=== PATIENT | male | born 1970 | race Caucasian/White ===

== ENCOUNTER 2018-04-30 10:51 | Emergency (ER) | payer OTHER, SELFPAY ==
[2018-04-30 10:55] VITALS: BP 138/81; PULSE 66; RESP 12; TEMP 35.9; O2SAT 97
--- NOTE | 2018-04-30 11:00 | ED.GENADULT ---
HPI - General Adult General Chief complaint: Dizziness Stated complaint: SEVERE DIZZINESS, NAUSEA, SOB, SWEATING Time Seen by Provider: 04/30/18 10:54 Source: patient Mode of arrival: ambulatory Limitations: no limitations History of Present Illness HPI narrative: Patient is otherwise healthy 47-year-old male here for evaluation of vertigo. Patient states that he has had multiple episodes of vertigo in the past over they were very short-lived. He states that he woke up this morning and noticed a spinning sensation. Does occur when he turns his head to the right. States that he feels much better if he is lying on his left side. Denies chest pain, palpitations, headache, ringing in his ears, vision changes, sinus congestion. He did take some decongestants this morning with only minimal relief. Has vomited 2 times. States that he has been sweating because of how bad he feels when the room was spinning. Related Data Home Medications Medication Instructions Recorded Confirmed fluticasone [Flonase Allergy 2 spray INTRANASAL QDAY #0 09/09/16 04/30/18 Relief] Allergy Drops 1 dose PO DAILY 04/30/18 04/30/18 Previous Rx's Medication Instructions Recorded meclizine 25 mg PO BID-TID PRN #10 tab 04/30/18 Allergies Allergy/AdvReac Type Severity Reaction Status Date / Time No Known Drug Allergies Allergy Verified 04/30/18 11:13 Review of Systems Constitutional Reports chills, Denies fever(s), Denies frequent falls and Denies headache(s) Eyes Denies diplopia, Denies loss of peripheral vision and Denies loss of vision ENT Ears, Nose, Mouth, and Throat: Reports vertigo and Denies headache(s) Cardiovascular Denies chest pain, Denies syncope, Denies palpitations and Denies dyspnea Respiratory Denies cough and Denies dyspnea Gastrointestinal Gastrointestinal: Denies abdominal pain, Denies constipation, Reports nausea and Reports vomiting Genitourinary Denies dysuria Musculoskeletal Denies myalgias, Denies arthralgias, Denies numbness and Denies tingling Integumentary/Breasts Denies rash and Denies sores Neurologic Denies behavioral changes, Denies confusion, Reports vertigo, Denies syncope, Denies frequent falls, Denies headache(s), Denies lack of coordination, Denies loss of vision, Denies numbness, Denies seizure-like activity and Denies tingling Psychiatric Denies behavioral changes and Denies confusion Endocrine Denies palpitations PFSH Family History Mother Age: 78 Dementia Grandmother Alzheimers disease Social History Smoking Status: Never smoker Exam Initial Vital Signs Initial Vital Signs: Vital Signs Temperature 96.6 F L 04/30/18 10:55 Pulse Rate 66 04/30/18 10:55 Respiratory Rate 12 04/30/18 10:55 Blood Pressure 138/81 H 04/30/18 10:55 Pulse Oximetry 97 04/30/18 10:55 Const General: cooperative, healthy appearing, comfortable, well developed, well groomed and No acute distress Orientation: alert, awake and oriented x3 HENMT Head: normal to inspection, normocephalic and atraumatic Ears: TM's normal bilaterally Nose: external nose normal Face and sinus: normal facial exam Mouth: oral mucosae normal Teeth and gingiva: dentition normal Eyes Eyelids: eyelids normal Pupils: PERRL EOM: EOM intact bilaterally Resp Effort & Inspection: normal respiratory effort Auscultation: clear to auscultation bilaterally Cardio Rate: regular rate Rhythm: regular rhythm Pulses: radial pulses present Skin Lesions: no lesions Rashes: no rashes Neuro General: alert, awake and oriented x3 Cranial Nerves: CN's II-XI intact bilaterally Cognition: normal cognition Speech: speech normal Gait: normal gait Motor: muscle tone normal throughout Sensory Exam: no sensory deficits noted Extrem General: normal to inspection and capillary refill normal Psych Appearance: grossly normal and well kempt Course Orders Ordered: ED Orders 04/30/18 11:04 EKG-12 Lead Stat 04/30/18 11:32 CT head/brain wo con Stat Discontinued Medications Diazepam (Valium) 10 mg PO NOW ONE Stop: 04/30/18 11:09 Last Admin: 04/30/18 11:26 Dose: 10 mg Sodium Chloride (Normal Saline 0.9%) 1,000 mls @ 1,000 mls/hr IV BOLUS ONE Stop: 04/30/18 12:07 Last Infusion: 04/30/18 12:14 Dose: 0 mls/hr Admin: 04/30/18 11:26 Dose: 1,000 mls/hr Ondansetron HCl (Zofran) 4 mg IV NOW ONE Stop: 04/30/18 11:09 Last Admin: 04/30/18 11:27 Dose: 4 mg Vital Signs - 8 hr 04/30/18 10:55 04/30/18 11:52 04/30/18 12:49 Temperature 96.6 F L Pulse Rate 66 70 70 Respiratory Rate 12 13 16 Blood Pressure 138/81 H Blood Pressure [Left Arm] 128/76 H 116/73 Pulse Oximetry 97 98 99 Medical Decision Making MDM Narrative Medical decision making narrative: Patient with almost complete resolution of his symptoms after the Valium and fluids here in the ER. Head CT was negative. This was done because the patient stated that his brother had a history of a brain tumor that started the sudden onset of vision changes. Patient's EKG was unremarkable. Patient essentially did his own Elías-Hallpike maneuver when he turned his head to the right this reproduces symptoms and when he looks straight ahead a turn his head to the left he had no symptoms. The remainder of his neurologic exam was unremarkable. He had no neck pain. Will hold on further workup for now. Patient was given instructions on the Pedro maneuver will send home with a prescription for Valium. I did discuss the case with his ENT doctor who is Dr. German who states that the patient can call his office for follow-up next week. Patient was given return precautions. He was instructed that he should not fly until he was cleared by his flight surgeon. He and his both expressed understanding and agreement with plan Imaging Data CT scan - head: Radiologist's impression: PROCEDURE: CT HEAD/BRAIN WO CON INDICATIONS: Vertigo TECHNIQUE: Noncontrast 4.5 mm thick angled axial sections acquired from the foramen magnum to the vertex, with coronal and sagittal reformats. For radiation dose reduction, the following was used: automated exposure control, adjustment of mA and/or kV according to patient size. COMPARISON: None. FINDINGS: Image quality: Excellent. CSF spaces: Basal cisterns are patent. No extra-axial fluid collections. Ventricles are normal in size and shape. Brain: No midline shift. No intracranial masses or hemorrhage. Boucher-white matter interface is normal. Skull and face: Calvarium and visualized facial bones are intact, without suspicious lesions. Sinuses: Visualized sinuses and mastoids are clear. IMPRESSION: A source of vertigo is not seen. Dictated by: Tre Daly M.D. on 04/30/2018 at 11:44 Approved by: Tre Daly M.D. on 04/30/2018 at 11:44 ECG Data Attestation: I personally reviewed and interpreted this ECG as follows: Prior ECG tracings: not available for review Interpretation: Sinus rhythm Ventricular rate is 63 Normal axis Normal intervals Normal QRS Normal QTC No ST T wave changes Discharge Plan Departure Patient Disposition: Home, Self-Care Clinical Impression: Vertigo Instructions: Vertigo (Alternative Therapy), DI for Vertigo Activity Restrictions/Additional Instructions: Take medications as instructed. You are not a fly into your cleared by your flight surgeon. You can contact Dr. German office for follow-up next week. Return to the emergency department for any new or worsening symptoms Prescriptions: New meclizine 25 mg tablet 25 mg PO BID-TID PRN (Reason: motion sickness) Qty: 10 RF: 0 No Action fluticasone [Flonase Allergy Relief] 9.9 ML spray,suspension 2 spray Intranasal QDAY Qty: 0 RF: 0 Allergy Drops 1 dose PO DAILY RF: 0
[2018-04-30] MEDS: diazePAM 5 MG TABLET 10 MG PO (11:26)
[2018-04-30] MEDS: SODIUM CHLORIDE 0.9% 1,000 ML 1000 ML IV (11:26)
[2018-04-30] MEDS: ONDANSETRON 4 MG/2 ML INJ IV (11:27)
--- NOTE | 2018-04-30 11:32 | DI.CT.S_ITS ---
PROCEDURE: CT HEAD/BRAIN WO CON INDICATIONS: Vertigo TECHNIQUE: Noncontrast 4.5 mm thick angled axial sections acquired from the foramen magnum to the vertex, with coronal and sagittal reformats. For radiation dose reduction, the following was used: automated exposure control, adjustment of mA and/or kV according to patient size. COMPARISON: None. FINDINGS: Image quality: Excellent. CSF spaces: Basal cisterns are patent. No extra-axial fluid collections. Ventricles are normal in size and shape. Brain: No midline shift. No intracranial masses or hemorrhage. Boucher-white matter interface is normal. Skull and face: Calvarium and visualized facial bones are intact, without suspicious lesions. Sinuses: Visualized sinuses and mastoids are clear. IMPRESSION: A source of vertigo is not seen. Dictated by: Tre Daly M.D. on 04/30/2018 at 11:44 Approved by: Tre Daly M.D. on 04/30/2018 at 11:44
[2018-04-30 11:52] VITALS: BP 128/76; PULSE 70; RESP 13; O2SAT 98
[2018-04-30 12:49] VITALS: BP 116/73; PULSE 70; RESP 16; O2SAT 99
[2018-04-30 13:25] VITALS: BP 111/72; PULSE 72; RESP 18; O2SAT 99
== END 2018-04-30 13:27 | disposition home or self-care (01) ==
PROVIDERS: Emergency Provider Emergency Medicine; PCP Internal Medicine
DX: R42 Dizziness and giddiness (principal)
CPT/HCPCS: 36591; 70450; 93005; 93041; 96361; 96374; 99283; 99284; J2405

== ENCOUNTER → 2018-08-23 08:32 | Outpatient (CLI) | payer OTHER, SELFPAY ==
[2018-08-23 09:52] LABS: Hematocrit 50.9 % (41-53); Hemoglobin 17.6 g/dL (13.5-17.5); Mean Corpuscular HGB Conc 34.5 % (30-36); Mean Corpuscular Hemoglobin 31.1 PG (26-34); Mean Corpuscular Volume 90.1 fL (80-100); Platelet Count 343 X10^3/uL (150-400); Red Blood Cell Count 5.65 X10^6/uL (4.5-5.9); Red Cell Distribution Width 12.7 % (11.6-14.8); White Blood Cell Count 10.2 X10^3/uL (4.5-11.0)
[2018-08-23 09:54] LABS: Add Manual Diff / Slide Review YES
[2018-08-23 10:26] LABS: Neutrophils Absolute Manual 5610 /uL (3000-5900); Total Cells Counted 100
[2018-08-23 10:30] LABS: Alanine Aminotransferase 33 IU/L (21-72); Albumin 5.1 g/dL (3.5-5.0); Albumin Globulin Ratio 1.6 (1.0-2.8); Alkaline Phosphatase 72 U/L (38-126); Aspartate Aminotransferase 27 IU/L (17-59); BUN Creatinine Ratio 10.9 (6-22); Bilirubin Total 1.6 mg/dL (0.2-1.3); Blood Urea Nitrogen 12 mg/dL (9-20); Calcium 9.9 mg/dL (8.4-10.2); Carbon Dioxide 18 mmol/L (22-32); Chloride 102 mmol/L (98-107); Cholesterol 216 mg/dL (140-199); Estimated Glomerular Filt Rate > 60.0 mL/min (>60); Globulin 3.1 g/dL (1.7-4.1); Glucose 89 mg/dL (70-100); HDL Cholesterol 47 mg/dL (40-60); HEMOLYSIS < 15 (0-50); LDL Cholesterol Calculated 140 mg/dL (<100); Potassium 4.7 mmol/L (3.4-5.1); Sodium 144 mmol/L (137-145); Total Protein 8.2 g/dL (6.3-8.2); Triglycerides 143 mg/dL (35-150)
[2018-08-23 10:45] LABS: Prostate Specific Antigen Scrn 9.24 ng/mL (0.1-4.0)
== END ==
PROVIDERS: PCP Internal Medicine; Visit Provider Internal Medicine
DX: Z00.00 Encounter for general adult medical examination without abnormal findings (principal); Z12.5 Encounter for screening for malignant neoplasm of prostate
CPT/HCPCS: 36415; 80053; 80061; 85025; G0103

== ENCOUNTER → 2018-08-31 11:38 | Outpatient (CLI) | payer OTHER, SELFPAY ==
[2018-09-02 15:26] LABS: PSA Free % 10 % (calc) (> 25); PSA, Total 11.7 ng/mL (< 4.1)
== END ==
PROVIDERS: PCP Internal Medicine; Visit Provider Internal Medicine
DX: R97.20 Elevated prostate specific antigen [PSA] (principal)
CPT/HCPCS: 36415; 84153; 84154

== ENCOUNTER → 2018-09-25 08:22 | Outpatient (CLI) | payer OTHER, SELFPAY | PROVIDERS: PCP Internal Medicine; Visit Provider Internal Medicine | DX: R97.20 Elevated prostate specific antigen [PSA] (principal) | CPT/HCPCS: 36415; 84153 ==

== ENCOUNTER 2019-01-11 10:43 | Day surgery (SDC) | payer OTHER, SELFPAY ==
[2019-01-11] MEDS: SODIUM CHLORIDE 0.9% 1,000 ML 200 ML IV (10:55)
[2019-01-11 10:56] VITALS: BP 138/81; PULSE 79; RESP 20; TEMP 36.2; O2SAT 95; BMI 31.5
--- NOTE | 2019-01-11 12:17 | PM.HP.1 ---
History of Present Illness Date Patient Seen: 01/11/19 Time Patient Seen: 11:29 Chief complaint: [id number] SCREENING COLONOSCOPY Narrative: The patient is a gentleman who had a colonoscopy 5 years ago. His father had colon cancer diagnosed in these his 60s. He is now from it. Patient gets a colonoscopy every 5 years. No rectal bleeding. Patient History Medical History Gilbert syndrome (Chronic) Elevated PSA (Chronic ~2017) Benign prostatic hyperplasia (Chronic 2012) Diverticulosis of intestine (Chronic 2003) Rosacea (Chronic 05/10/15) Benign paroxysmal vertigo (Chronic 04/30/18) Hayfever (Chronic 1973) Chicken pox (Resolved) Surgical History History of colonoscopy (Resolved 06/18/12) Family History Mother Age: 79 Dementia Grandmother Alzheimer's disease Brother No problems noted. Brother No problems noted. Father Colon cancer Sister No problems noted. Sister No problems noted. Social History marital status: number of children: 2 household members: spouse lives independently: Yes caregiver/support person: No housing: house pets and animals: Yes education level: college (Bachelors Degree) occupational status: employed current occupational exposures/hazards: Yes owen/pentecostal: [employer] travel history: recent ([place], [place], [place], [place], [place]) leisure activities: sports (Golfing.) and exercise (Hiking) Smoking Status: Never smoker Tobacco: How many years used: 0 quit status: quit date established (Never Started) second hand exposure: Yes (Childhood) alcohol intake: current (~3 beers a week.) substance use type: does not use Family & Social History Family History Mother Age: 79 Dementia Grandmother Alzheimer's disease Brother No problems noted. Brother No problems noted. Father Colon cancer Sister No problems noted. Sister No problems noted. Social History: household members spouse lives independently Yes caregiver/support person No Tobacco & Substance use: Smoking Status Never smoker alcohol intake current alcohol intake frequency 0-2 drinks per day Substance Use Type does not use Meds Home Medications Medication Instructions Recorded Confirmed Type fluticasone propionate [Flonase 2 spray INTRANASAL QDAY #0 09/09/16 01/11/19 History Allergy Relief] Allergy Drops 1 dose PO DAILY 04/30/18 11/01/18 History Allergies Allergy/AdvReac Type Severity Reaction Status Date / Time No Known Drug Allergies Allergy Verified 01/11/19 11:12 Review of Systems Review of Systems All systems reviewed & are unremarkable except as noted in HPI and below Eyes Comments: Wears glasses Exam Vital Signs (past 8 hours): - 01/11/19 10:56 Temperature 97.1 F L Pulse Rate 79 Respiratory Rate 20 Blood Pressure 138/81 Pulse Oximetry 95 Oxygen Delivery Method Room Air Narrative Exam Narrative: Operative no apparent distress. Lungs are clear to auscultation. Heart regular rate and rhythm without murmur gallop. Abdomen is mildly protuberant soft nontender without mass. Patient is alert and oriented x3. Assessment & Plan Assessment & Plan narrative: Patient for screening colonoscopy due to family history. I have discussed the procedure and the rationale with the patient including risks of bleeding, perforation which would necessitate a major operation, failure to find remove all lesions and the potential to tattoo. They appeared to understand and wished to proceed.
--- NOTE | 2019-01-11 12:20 | P.HP_ITS ---
History of Present Illness Date Patient Seen: 01/11/19 Time Patient Seen: 11:29 Chief complaint: [id number] SCREENING COLONOSCOPY Narrative: The patient is a gentleman who had a colonoscopy 5 years ago. His father had colon cancer diagnosed in these his 60s. He is now from it. Patient gets a colonoscopy every 5 years. No rectal bleeding. Patient History Medical History Gilbert syndrome (Chronic) Elevated PSA (Chronic ~2017) Benign prostatic hyperplasia (Chronic 2012) Diverticulosis of intestine (Chronic 2003) Rosacea (Chronic 05/10/15) Benign paroxysmal vertigo (Chronic 04/30/18) Hayfever (Chronic 1973) Chicken pox (Resolved) Surgical History History of colonoscopy (Resolved 06/18/12) Family History Mother Age: 79 Dementia Grandmother Alzheimer's disease Brother No problems noted. Brother No problems noted. Father Colon cancer Sister No problems noted. Sister No problems noted. Social History marital status: number of children: 2 household members: spouse lives independently: Yes caregiver/support person: No housing: house pets and animals: Yes education level: college (Bachelors Degree) occupational status: employed current occupational exposures/hazards: Yes owen/buddhist: Scientologist travel history: recent ([place], [place], [place], [place], [place]) leisure activities: sports (Golfing.) and exercise (Hiking) Smoking Status: Never smoker Tobacco: How many years used: 0 quit status: quit date established (Never Started) second hand exposure: Yes (Childhood) alcohol intake: current (~3 beers a week.) substance use type: does not use Family & Social History Family History Mother Age: 79 Dementia Grandmother Alzheimer's disease Brother No problems noted. Brother No problems noted. Father Colon cancer Sister No problems noted. Sister No problems noted. Social History: household members spouse lives independently Yes caregiver/support person No Tobacco & Substance use: Smoking Status Never smoker alcohol intake current alcohol intake frequency 0-2 drinks per day Substance Use Type does not use Meds Home Medications Medication Instructions Recorded Confirmed Type fluticasone propionate [Flonase 2 spray INTRANASAL QDAY #0 09/09/16 01/11/19 History Allergy Relief] Allergy Drops 1 dose PO DAILY 04/30/18 11/01/18 History Allergies Allergy/AdvReac Type Severity Reaction Status Date / Time No Known Drug Allergies Allergy Verified 01/11/19 11:12 Review of Systems Review of Systems All systems reviewed & are unremarkable except as noted in HPI and below Eyes Comments: Wears glasses Exam Vital Signs (past 8 hours): - 01/11/19 10:56 Temperature 97.1 F L Pulse Rate 79 Respiratory Rate 20 Blood Pressure 138/81 Pulse Oximetry 95 Oxygen Delivery Method Room Air Narrative Exam Narrative: Operative no apparent distress. Lungs are clear to auscultation. Heart regular rate and rhythm without murmur gallop. Abdomen is mildly protuberant soft nontender without mass. Patient is alert and oriented x3. Assessment & Plan Assessment & Plan narrative: Patient for screening colonoscopy due to family history. I have discussed the procedure and the rationale with the patient including risks of bleeding, perforation which would necessitate a major operation, failure to find remove all lesions and the potential to tattoo. They appeared to understand and wished to proceed.
--- NOTE | 2019-01-11 12:20 | PM.PREOP ---
Pre-operative Note Interval Note History & Physical reviewed/Exam performed by Physician: Yes Changes to H&P: No ASA Class (for procedural sedation): I
[2019-01-11] MEDS: MIDAZOLAM 5 MG/5 ML VIAL IV (12:25)
[2019-01-11] MEDS: fentaNYL 250 MCG/5 ML INJ IV (12:26)
--- NOTE | 2019-01-11 12:40 | PM.OP.ENDO ---
Operative Date/Time/Diagnoses Date of procedure: 01/11/19 Time of procedure: 12:40 Pre-op diagnosis: Screening examination. Last exam 5 years ago. Patient has a father who had colon cancer in his 60s. Post-op diagnosis: same (Diverticulosis of the sigmoid colon) Procedure & Clinicians Study performed: Colonoscopy Same procedure as scheduled: Yes Indications: Screening Surgeon: Ángel Jiménez Procedure Notes SCOAP/Timeout: Performed Procedure in detail: The patient was placed in the left lateral decubitus position and underwent IV sedation directed by the surgeon consisting of fentanyl and Versed. Digital exam was remarkable for an enlarged firm prostate.(patient had biopsies performed about a month ago which were negative for cancer per his history). The scope was inserted and advanced through the rectum into the sigmoid, descending, transverse, and ascending colon. The patient was noted to have sigmoid diverticulosis. No other lesions were seen on the way in.. The cecum was reached identified by the ileocecal valve and the appendiceal opening. The scope was gradually brought out. No Polyps were found. The scope ultimately was retroflexed in the rectum. The appearance was[normal]. The scope was removed and the patient tolerated the procedure well. The prep was very good. Scope withdrawal time: 7 min Sedation minutes: 19 Findings: diverticulosis (Sigmoid colon) Specimen(s): none sent Complications: none Recommendations: Colonscopy in 5 years (Due to family history) Follow up: as needed Disposition: PACU
[2019-01-11 12:43] VITALS: BP 121/75; PULSE 77; RESP 8; O2SAT 94
[2019-01-11 12:51] VITALS: BP 142/80; PULSE 92; RESP 16; TEMP 36.4; O2SAT 96
--- NOTE | 2019-01-11 12:52 | SUR.PHASEI ---
Pt arrived from endo awake, abd soft. Denied pain.
== END 2019-01-11 13:06 | disposition home or self-care (01) ==
PROVIDERS: PCP Internal Medicine; Visit Provider Specialist
PROC: 0DJD8ZZ Inspection of Lower Intestinal Tract, Via Natural or Artificial Opening Endoscopic (ICD-10-PCS; CPT 45378; principal; 2019-01-11 11:45)
DX: Z12.11 Encounter for screening for malignant neoplasm of colon (principal); K57.30 Diverticulosis of large intestine without perforation or abscess without bleeding; Z80.0 Family history of malignant neoplasm of digestive organs; E80.4 Gilbert syndrome; R97.20 Elevated prostate specific antigen [PSA]; N40.0 Benign prostatic hyperplasia without lower urinary tract symptoms
CPT/HCPCS: 45378; 99152; J2250; J3010

== ENCOUNTER → 2019-08-24 11:15 | Outpatient (CLI) | payer OTHER, SELFPAY ==
[2019-08-24 12:53] LABS: Alanine Aminotransferase 43 IU/L (<50); Albumin 4.7 g/dL (3.5-5.0); Albumin Globulin Ratio 1.8 (1.0-2.8); Alkaline Phosphatase 68 U/L (38-126); Aspartate Aminotransferase 36 IU/L (17-59); Bilirubin Total 1.7 mg/dL (0.2-1.3); Blood Urea Nitrogen 14 mg/dL (9-20); Calcium 9.7 mg/dL (8.4-10.2); Carbon Dioxide 27 mmol/L (22-32); Chloride 102 mmol/L (98-107); Cholesterol 207 mg/dL (140-199); Estimated Glomerular Filt Rate > 60.0 mL/min (>60); Globulin 2.6 g/dL (1.7-4.1); Glucose 83 mg/dL (70-100); HDL Cholesterol 41 mg/dL (40-60); HEMOLYSIS < 15 (0-50); LDL Cholesterol Calculated 146 mg/dL (<100); Potassium 4.5 mmol/L (3.4-5.1); Sodium 139 mmol/L (137-145); Total Protein 7.3 g/dL (6.3-8.2); Triglycerides 100 mg/dL (35-150)
[2019-08-24 13:22] LABS: Prostate Specific Antigen 9.21 ng/mL (0.10-4.00)
== END ==
PROVIDERS: PCP Internal Medicine; Visit Provider Internal Medicine
DX: Z13.1 Encounter for screening for diabetes mellitus (principal); Z13.6 Encounter for screening for cardiovascular disorders; N40.0 Benign prostatic hyperplasia without lower urinary tract symptoms; R97.20 Elevated prostate specific antigen [PSA]
CPT/HCPCS: 36415; 80053; 80061; 84153

== ENCOUNTER 2019-10-10 18:01 | Emergency (ER) | payer OTHER, SELFPAY ==
[2019-10-10 18:07] VITALS: BP 127/79; PULSE 73; RESP 16; TEMP 36.3; O2SAT 100; BMI 30.1
--- NOTE | 2019-10-10 18:44 | ED.GIBLEED ---
HPI - GI Bleed General Chief complaint: GI Bleed Stated complaint: blood in bowel movements/no pain Time Seen by Provider: 10/10/19 18:23 Source: patient Mode of arrival: Ambulatory History of Present Illness HPI Narrative: Patient is otherwise healthy 49-year-old male here for evaluation of bright red blood per rectum. States that over the past day or so he has had bright red blood on the paper when he wiped after having a bowel movement. He states that he has not been having particularly hard bowel movements. They're not painful. Does not describe any blood on the stool or in the water. Did have a father with a history of colon cancer who at the age of 69 after being diagnosed at the age of 65. Patient states that he had a colonoscopy within the past 12 months which he states showed diverticulosis however no polyps. He denies any abdominal pain. No urinary symptoms. Related Data Home Medications Medication Instructions Recorded Confirmed fluticasone propionate [Flonase 2 spray INTRANASAL QDAY #0 09/09/16 09/01/19 Allergy Relief] Allergy Drops 1 dose PO DAILY 04/30/18 09/01/19 Allergies Allergy/AdvReac Type Severity Reaction Status Date / Time No Known Drug Allergies Allergy Verified 09/01/19 09:13 Review of Systems Constitutional Constitutional: Denies fever(s) Cardiovascular Cardiovascular: Denies chest pain and Denies dyspnea Respiratory Respiratory: Denies dyspnea Gastrointestinal Gastrointestinal: Denies abdominal pain, Denies change in stool character, Denies nausea and Denies vomiting Comments: Bright red blood per rectum Genitourinary Genitourinary: Denies dysuria Musculoskeletal Musculoskeletal: Denies myalgias and Denies arthralgias Integumentary/Breasts Skin/Breast: Denies lesions and Denies rash Neurologic Neurologic: Denies behavioral changes Psychiatric Psychiatric: Denies behavioral changes Hematologic/Lymphatic Hematologic/Lymphatic: Denies easy bleeding and Denies easy bruising Patient History Medical History Benign paroxysmal vertigo (Chronic 04/30/18) Benign prostatic hyperplasia (Chronic 2012) Diverticulosis of intestine (Chronic 2003) Elevated PSA (Chronic ~2018) Gilbert syndrome (Chronic) Hayfever (Chronic 1973) Rosacea (Chronic 05/10/15) Surgical History History of colonoscopy (Resolved 06/18/12) Family History Mother Age: 80 Dementia Grandmother Alzheimer's disease Brother No problems noted. Brother No problems noted. Father Colon cancer Sister No problems noted. Sister No problems noted. Social History marital status: number of children: 2 household members: spouse lives independently: Yes caregiver/support person: No housing: house pets and animals: Yes education level: college (Bachelors Degree) occupational status: employed current occupational exposures/hazards: Yes owen/mandaeism: Jewish travel history: recent ([place], [place], [place], [place], [place]) leisure activities: sports (Golfing.) and exercise (Hiking) Smoking Status: Never smoker Tobacco: How many years used: 0 quit status: quit date established (Never Started) second hand exposure: Yes (Childhood) alcohol intake: current (~3 beers a week.) substance use type: does not use Smoking Status: Never smoker alcohol intake frequency: 0-2 drinks per day Substance Use Type: does not use Exam Initial Vital Signs Initial Vital Signs: Vital Signs Temperature 97.3 F L 10/10/19 18:07 Pulse Rate 73 10/10/19 18:07 Respiratory Rate 16 10/10/19 18:07 Blood Pressure 127/79 10/10/19 18:07 Pulse Oximetry 100 10/10/19 18:07 Const General: cooperative, healthy appearing and comfortable HENMT Head: normal to inspection and normocephalic Resp Effort & Inspection: normal respiratory effort Auscultation: clear to auscultation bilaterally Cardio Rate: regular rate Rhythm: regular rhythm GI Inspection: non-distended Palpation: soft and No firm Rectal Exam: visual inspection normal, normal sphincter tone, No fecal impaction, No fissure, heme negative stool, hemorrhoids (Small right-sided internal hemorrhoid), No lesions and No tenderness Skin Lesions: no lesions Rashes: no rashes Neuro General: alert and awake Cognition: normal cognition Speech: speech normal Extrem General: normal to inspection and capillary refill normal Psych Appearance: grossly normal and well kempt Course Vital Signs Vital signs: Vital Signs - 8 hr 10/10/19 18:07 Temperature 97.3 F L Pulse Rate 73 Respiratory Rate 16 Blood Pressure 127/79 Pulse Oximetry 100 MDM - GI Bleed MDM Narrative Medical decision making narrative: Patient is heme negative stool. Had a soft abdomen. Low suspicion for diverticulitis. On rectal exam I felt the day did feel a small internal hemorrhoid on the left side. This could very well be the cause of his painless rectal bleeding. Did not see any fissures. There were no external hemorrhoids. He did have a family history of colon cancer however patient has had a colonoscopy without removal any polyps within the past 12 months. I do feel that this is very reassuring in points against a diagnosis such as colon cancer. I did inform the patient that he should talk with his primary doctor about this to discuss any potential further workup. We did discuss being on a good bowel regimen to avoid diarrhea or constipation. He was given return precautions. He expressed understanding and agreement with plan. Discharge Plan Departure Patient Disposition: Home Clinical Impression: Bright red rectal bleeding Discharge Date/Time: 10/10/19 19:04 Instructions: DI for Rectal Bleeding Activity Restrictions/Additional Instructions: I do recommend that you contact your primary care provider to discuss and further work up. Return to the ER for any new or worsening symptoms. Prescriptions: No Action fluticasone propionate [Flonase Allergy Relief] 9.9 ML spray,suspension 2 spray Intranasal QDAY Qty: 0 RF: 0 Allergy Drops 1 dose PO DAILY RF: 0 Referrals: Mauricio Mar MD [Primary Care Provider] -
== END 2019-10-10 19:04 | disposition home or self-care (01) ==
PROVIDERS: Emergency Provider Emergency Medicine; PCP Internal Medicine
DX: K62.5 Hemorrhage of anus and rectum (principal); K64.8 Other hemorrhoids
CPT/HCPCS: 99281; 99282

== ENCOUNTER → 2020-10-08 15:36 | Outpatient (CLI) | payer OTHER, SELFPAY ==
[2020-10-08 17:16] LABS: Prostate Specific Antigen 8.14 ng/mL (0.10-4.00)
== END ==
PROVIDERS: PCP Internal Medicine; Referring Provider Urology; Visit Provider Urology
DX: R97.20 Elevated prostate specific antigen [PSA] (principal)
CPT/HCPCS: 36415; 84153

== ENCOUNTER → 2020-12-20 09:22 | Outpatient (CLI) | payer OTHER, SELFPAY ==
[2020-12-20 11:51] LABS: Alanine Aminotransferase 39 IU/L (<50); Albumin 4.5 g/dL (3.5-5.0); Albumin Globulin Ratio 1.4 (1.0-2.8); Alkaline Phosphatase 68 U/L (38-126); Aspartate Aminotransferase 31 IU/L (17-59); BUN Creatinine Ratio 11.9 (6-22); Bilirubin Total 1.7 mg/dL (0.2-1.3); Blood Urea Nitrogen 12 mg/dL (9-20); Calcium 9.4 mg/dL (8.4-10.2); Carbon Dioxide 30 mmol/L (22-32); Chloride 102 mmol/L (98-107); Cholesterol 212 mg/dL (140-199); Estimated Glomerular Filt Rate > 60.0 mL/min (>60); Globulin 3.2 g/dL (1.7-4.1); Glucose 93 mg/dL (70-100); HDL Cholesterol 39 mg/dL (40-60); HEMOLYSIS < 15 (0-50); LDL Cholesterol Calculated 139 mg/dL (<100); Potassium 4.3 mmol/L (3.4-5.1); Sodium 137 mmol/L (137-145); Total Protein 7.7 g/dL (6.3-8.2); Triglycerides 168 mg/dL (35-150)
== END ==
PROVIDERS: PCP Internal Medicine; Referring Provider Internal Medicine; Visit Provider Internal Medicine
DX: E80.4 Gilbert syndrome (principal); Z13.220 Encounter for screening for lipoid disorders
CPT/HCPCS: 36415; 80053; 80061

== ENCOUNTER → 2021-01-07 13:17 | Outpatient (CLI) | payer OTHER, SELFPAY | PROVIDERS: PCP Internal Medicine; Visit Provider Physician Assistant | DX: N34.3 Urethral syndrome, unspecified (principal) | CPT/HCPCS: 87086 ==

== ENCOUNTER → 2021-04-15 11:11 | Outpatient (CLI) | payer OTHER, SELFPAY ==
[2021-04-15 13:26] LABS: Prostate Specific Antigen 9.28 ng/mL (0.10-4.00)
== END ==
PROVIDERS: PCP Internal Medicine; Referring Provider Urology; Visit Provider Urology
DX: R97.20 Elevated prostate specific antigen [PSA] (principal)
CPT/HCPCS: 36415; 84153

== ENCOUNTER → 2021-12-23 12:27 | Outpatient (CLI) | payer OTHER, SELFPAY ==
[2021-12-23 14:27] LABS: Alanine Aminotransferase 37 IU/L (<50); Albumin 4.8 g/dL (3.5-5.0); Albumin Globulin Ratio 1.5 (1.0-2.8); Alkaline Phosphatase 69 U/L (38-126); Aspartate Aminotransferase 37 IU/L (17-59); BUN Creatinine Ratio 10.4 (6-22); Bilirubin Total 2.1 mg/dL (0.2-1.3); Blood Urea Nitrogen 10 mg/dL (9-20); Calcium 9.1 mg/dL (8.4-10.2); Carbon Dioxide 31 mmol/L (22-32); Chloride 102 mmol/L (98-107); Cholesterol 229 mg/dL (140-199); Estimated Glomerular Filt Rate > 60.0 mL/min (>60); Globulin 3.3 g/dL (1.7-4.1); Glucose 93 mg/dL (70-100); HDL Cholesterol 43 mg/dL (40-60); HEMOLYSIS < 15 (0-50); LDL Cholesterol Calculated 158 mg/dL (<100); Potassium 4.3 mmol/L (3.4-5.1); Sodium 140 mmol/L (137-145); Total Protein 8.1 g/dL (6.3-8.2); Triglycerides 139 mg/dL (35-150)
[2021-12-23 14:46] LABS: Prostate Specific Antigen 7.97 ng/mL (0.10-4.00)
== END ==
PROVIDERS: PCP Internal Medicine; Referring Provider Internal Medicine; Visit Provider Internal Medicine
DX: E80.4 Gilbert syndrome (principal); R97.20 Elevated prostate specific antigen [PSA]; K57.90 Diverticulosis of intestine, part unspecified, without perforation or abscess without bleeding; Z13.220 Encounter for screening for lipoid disorders
CPT/HCPCS: 36415; 80053; 80061; 84153

== ENCOUNTER → 2022-07-14 17:02 | Outpatient (CLI) | payer OTHER, SELFPAY ==
[2022-07-14 18:33] LABS: Add Manual Diff / Slide Review NO; Basophils Absolute Auto 100 /uL (0-100); Basophils Percent Auto 0.7 % (0-2); Eosinophils Absolute Auto 600 /uL (0-450); Eosinophils Percent Auto 6.3 % (2-4); Hematocrit 43.6 % (41-53); Hemoglobin 15.7 g/dL (13.5-17.5); Lymphocytes Absolute Auto 2000 /uL (1100-4500); Lymphocytes Percent Auto 21.7 % (25-40); Mean Corpuscular Hemoglobin 31.7 PG (26-34); Mean Corpuscular Volume 87.9 fL (80-100); Monocytes Absolute Auto 700 /uL (0-900); Monocytes Percent Auto 7.9 % (3-14); Neutrophils Absolute Auto 6000 /uL (1500-7000); Neutrophils Percent Auto 63.4 % (50-75); Platelet Count 292 X10^3/uL (150-400); Red Blood Cell Count 4.96 X10^6/uL (4.5-5.9); Red Cell Distribution Width 12.9 % (11.6-14.8); White Blood Cell Count 9.4 X10^3/uL (4.5-11.0)
[2022-07-14 18:51] LABS: Alanine Aminotransferase 34 IU/L (<50); Albumin 4.4 g/dL (3.5-5.0); Albumin Globulin Ratio 1.4 (1.0-2.8); Alkaline Phosphatase 68 U/L (38-126); Aspartate Aminotransferase 28 IU/L (17-59); BUN Creatinine Ratio 13.5 (6-22); Bilirubin Total 1.1 mg/dL (0.2-1.3); Blood Urea Nitrogen 13 mg/dL (9-20); Calcium 8.9 mg/dL (8.4-10.2); Carbon Dioxide 28 mmol/L (22-32); Chloride 102 mmol/L (98-107); Estimated Glomerular Filt Rate > 60 mL/min (>60); Globulin 3.1 g/dL (1.7-4.1); Glucose 115 mg/dL (70-100); HEMOLYSIS < 15 (0-50); Potassium 3.8 mmol/L (3.4-5.1); Sodium 139 mmol/L (137-145); Total Protein 7.5 g/dL (6.3-8.2)
[2022-07-14 19:22] LABS: TSH w/ Reflex to FT4 2.26 uIU/mL (0.47-4.68)
== END ==
PROVIDERS: PCP Internal Medicine; Referring Provider Internal Medicine; Visit Provider Internal Medicine
DX: K57.90 Diverticulosis of intestine, part unspecified, without perforation or abscess without bleeding (principal); K59.01 Slow transit constipation; N40.1 Benign prostatic hyperplasia with lower urinary tract symptoms; R35.0 Frequency of micturition
CPT/HCPCS: 36415; 80053; 84443; 85025

== ENCOUNTER → 2023-09-22 16:57 | Outpatient (CLI) | payer OTHER, SELFPAY ==
--- NOTE | 2023-09-22 16:59 | DI.RAD.S_ITS ---
PROCEDURE: XR CERVICAL SPINE 2V OR 3V INDICATIONS: neck pain TECHNIQUE: 3 view(s) of the cervical spine were acquired. COMPARISON: None. FINDINGS: Bones: No fractures or dislocations to the C7 level. Straightening of the normal cervical lordosis. Multilevel disc height loss with degenerative endplate changes and spurring, most severe at C6-C7. The lateral masses of C1 appear intact on the odontoid view. No suspicious bony lesions. Soft tissues: No prevertebral soft tissue swelling. IMPRESSION: Degenerative changes of the cervical spine, most pronounced within the lower cervical spine. Dictated by: Danilee Jordan M.D. on 09/23/2023 at 8:44 Approved by: Daniele Jordan M.D. on 09/23/2023 at 8:49
--- NOTE | 2023-09-22 16:59 | DI.RAD.S_ITS ---
PROCEDURE: XR LUMBAR SPINE MIN 4V INDICATIONS: low back pain TECHNIQUE: 5 views of the lumbar spine were acquired, including bilateral oblique views. COMPARISON: None. FINDINGS: Bones: 5 nonrib-bearing vertebrae are present. Mild dextrocurvature of the lumbar spine. There is multilevel facet arthropathy, worse at L4-5 and L5-S1. Mild multilevel disc height loss with degenerative endplate changes and spurring is present. This is most pronounced at L5-S1. No vertebral body compression fractures. No suspicious bony lesions. Soft tissues: Overlying bowel gas pattern is normal. No suspicious soft tissue calcifications. Oblique images: No pars defects. IMPRESSION: Multilevel degenerative changes of the lumbar spine, most pronounced at L5-S1. Dictated by: Daniele Jordan M.D. on 09/23/2023 at 8:49 Approved by: Daniele Jordan M.D. on 09/23/2023 at 8:50
== END ==
PROVIDERS: PCP Internal Medicine; Referring Provider Internal Medicine; Visit Provider Internal Medicine
DX: M47.812 Spondylosis without myelopathy or radiculopathy, cervical region (principal); M54.50 Low back pain, unspecified; M47.817 Spondylosis without myelopathy or radiculopathy, lumbosacral region; M47.816 Spondylosis without myelopathy or radiculopathy, lumbar region
CPT/HCPCS: 72040; 72110

== ENCOUNTER → 2023-10-26 07:26 | Outpatient (CLI) | payer OTHER, SELFPAY ==
[2023-10-26 08:25] LABS: Alanine Aminotransferase 32 IU/L (<50); Albumin 4.4 g/dL (3.5-5.0); Albumin Globulin Ratio 1.4 (1.0-2.8); Alkaline Phosphatase 65 U/L (38-126); Aspartate Aminotransferase 29 IU/L (17-59); BUN Creatinine Ratio 12.7 (6-22); Bilirubin Total 2.2 mg/dL (0.2-1.3); Blood Urea Nitrogen 13 mg/dL (9-20); Calcium 9.7 mg/dL (8.4-10.2); Carbon Dioxide 26 mmol/L (22-32); Chloride 102 mmol/L (98-107); Cholesterol 193 mg/dL (140-199); Estimated Glomerular Filt Rate > 60 mL/min (>60); Globulin 3.1 g/dL (1.7-4.1); Glucose 92 mg/dL (70-100); HDL Cholesterol 41 mg/dL (40-60); HEMOLYSIS < 15 (0-50); LDL Cholesterol Calculated 125 mg/dL (<100); Potassium 4.2 mmol/L (3.4-5.1); Sodium 136 mmol/L (137-145); Total Protein 7.5 g/dL (6.3-8.2); Triglycerides 134 mg/dL (35-150)
[2023-10-26 08:55] LABS: Prostate Specific Antigen 11.8 ng/mL (0.10-4.00)
== END ==
PROVIDERS: PCP Internal Medicine; Referring Provider Internal Medicine; Visit Provider Internal Medicine
DX: E80.4 Gilbert syndrome (principal); R97.20 Elevated prostate specific antigen [PSA]; E78.5 Hyperlipidemia, unspecified
CPT/HCPCS: 36415; 80053; 80061; 84153

== ENCOUNTER → 2024-09-05 08:06 | Outpatient (CLI) | payer OTHER, SELFPAY ==
--- NOTE | 2024-09-05 08:10 | DI.RAD.S_ITS ---
PROCEDURE: XR FOOT LT 2V INDICATIONS: FOOT PAIN TECHNIQUE: 2 views of the foot were acquired. COMPARISON: [facility], CR, XR FOOT RT 2V, 09/05/2024, 8:13. FINDINGS: Bones: No fractures or dislocations. No suspicious bony lesions. Soft tissues: No tibiotalar joint effusion. Achilles tendon appears normal. IMPRESSION: No acute bony abnormality. Dictated by: Chris Bernal M.D. on 09/05/2024 at 18:24 Approved by: Chris Bernal M.D. on 09/05/2024 at 18:26
--- NOTE | 2024-09-05 08:10 | DI.RAD.S_ITS ---
PROCEDURE: XR FOOT RT 2V INDICATIONS: FOOT PAIN TECHNIQUE: 2 views of the foot were acquired. COMPARISON: [facility], CR, XR FOOT LT 2V, 09/05/2024, 8:13. FINDINGS: Bones: No fractures or dislocations. No suspicious bony lesions. Soft tissues: No tibiotalar joint effusion. Achilles tendon appears normal. IMPRESSION: No acute bony abnormality. Dictated by: Chris Bernal M.D. on 09/05/2024 at 18:23 Approved by: Chris Bernal M.D. on 09/05/2024 at 18:24
== END ==
PROVIDERS: Referring Provider Chiropractor; Visit Provider Chiropractor
DX: M13.871 Other specified arthritis, right ankle and foot (principal); M13.872 Other specified arthritis, left ankle and foot
CPT/HCPCS: 73620

== ENCOUNTER → 2024-10-31 08:28 | Outpatient (CLI) | payer OTHER, SELFPAY ==
--- NOTE | 2024-10-31 08:30 | DI.MRI.S_ITS ---
PROCEDURE: MR CERVICAL SPINE WO CON INDICATIONS: Lumbar radiculopathy TECHNIQUE: Noncontrast sagittal T1 spin echo and T2 fast spin echo, sagittal STIR, foraminal oblique sagittal T2 fast spin echo, and axial gradient echo or T2 fast spin echo through the cervical spine. COMPARISON: [facility], MR, C-SPINE WITHOUT CONTRAST, 08/17/2014, 7:18. FINDINGS: Image quality: Excellent. Alignment and Curvature: Mild reversal of the normal cervical lordosis. Bone Marrow: Marrow demonstrates normal overall signal with some sclerosis at C5-C6 endplates. Spinal Cord: Visualized spinal cord has normal size and signal. No cerebellar tonsillar herniation. Paraspinous Soft Tissues: No paravertebral masses. Prevertebral soft tissues are normal in thickness. C2-C3: Normal appearance. C3-C4: Small central disc protrusion indenting the ventral thecal sac resulting in mild central canal stenosis without neural foraminal stenosis. C4-C5: Mild disc bulge indenting the ventral thecal sac without central canal stenosis, with endplate osteophytes resulting in moderate bilateral neural foraminal stenosis. C5-C6: Mild disc bulge indenting the ventral thecal sac without central canal stenosis, with endplate osteophytes resulting in moderate bilateral neural foraminal stenosis. C6-C7: Mild disc bulge indenting the ventral thecal sac without central canal stenosis, with endplate osteophytes and facet arthropathy resulting in mild right and moderate left neural foraminal stenosis. C7-T1: Normal appearance. IMPRESSION: 1. Moderate bilateral neural foraminal stenosis at C5-C6 and on the left at C6-C7. 2. [id number]-[id number] multilevel degenerative disc disease, worse at C5-C6. Dictated by: Gus Solorzano M.D. on 10/31/2024 at 12:10 Approved by: Gus Solorzano M.D. on 10/31/2024 at 12:49
--- NOTE | 2024-10-31 08:57 | DI.MRI.S_ITS ---
PROCEDURE: MR LUMBAR SPINE WO CON INDICATIONS: Lumbar radiculopathy TECHNIQUE: Noncontrast sagittal T1 spin echo and T2 fast echo, sagittal STIR, and T2 fast spin echo through the lumbar spine. In cases with scoliosis, additional coronal T2 fast spin echo may be performed. COMPARISON: None. FINDINGS: Image quality: Excellent. Alignment and Curvature: There is normal bony alignment. Bone Marrow and discs: Marrow is of normal overall signal. No acute vertebral body compression fractures. Bkgt-db-cytcohty disc height loss is seen at all levels except L4-L5. Spinal Cord: Conus medullaris terminates at the L1 level. Visualized cord demonstrates normal signal and size. Paraspinous Soft Tissues: No paravertebral masses. T12-L1: Minimal posterior longitudinal ligamentous thickening without significant central canal stenosis. No neural foraminal stenosis. L1-L2: Mild disc bulge indenting the ventral thecal sac without significant central canal stenosis, resulting in mild left neural foraminal stenosis. L2-L3: Mild disc bulge indenting the ventral thecal sac with ligamentum flavum thickening resulting in mild central canal stenosis and mild bilateral neural foraminal stenosis. L3-L4: Mild disc bulge and ligamentum flavum thickening resulting in mild central canal stenosis and moderate bilateral neural foraminal stenosis. L4-L5: Minimal posterior longitudinal ligament and ligamentum flavum thickening without significant central canal or neural foraminal stenosis. L5-S1: Small disc bulge in contact with the posterior longitudinal ligament without central canal stenosis, but with facet arthropathy resulting in severe bilateral neural foraminal stenosis. IMPRESSION: 1. Severe bilateral neural foraminal stenosis at L5-S1. 2. Moderate bilateral neural foraminal stenosis at L3-L4. Dictated by: Gus Solorzano M.D. on 10/31/2024 at 12:01 Approved by: Gus Solorzano M.D. on 10/31/2024 at 12:10
== END ==
PROVIDERS: PCP Internal Medicine; Referring Provider Physical Medicine & Rehabilitation; Visit Provider Physical Medicine & Rehabilitation
DX: M50.122 Cervical disc disorder at C5-C6 level with radiculopathy (principal); M48.02 Spinal stenosis, cervical region; M51.16 Intervertebral disc disorders with radiculopathy, lumbar region; M48.061 Spinal stenosis, lumbar region without neurogenic claudication; M51.17 Intervertebral disc disorders with radiculopathy, lumbosacral region; M48.07 Spinal stenosis, lumbosacral region
CPT/HCPCS: 72141; 72148